=== PATIENT | female | born 1995 | race Caucasian/White ===

== ENCOUNTER → 2016-10-25 12:47 | Outpatient (CLI) | payer MEDICAID ==
[2013-11-26 08:40] VITALS: BMI 36.2
[~2016-10-25 12:47] MED LIST: FERROUS SULFAT325 MG PO; FOLIC ACID1 MG PO; IBUPROFEN600 MG PO; PERCOCET 5-3251 TAB PO; PRENATAL COMPLE1 TAB PO
== END | disposition home or self-care (01) ==
LOC: D.LDO 12:47
DX: Z34.83 Encounter for supervision of other normal pregnancy, third trimester (principal); Z3A.37 37 weeks gestation of pregnancy; R03.0 Elevated blood-pressure reading, without diagnosis of hypertension

== ENCOUNTER 2016-11-04 04:53 | Inpatient (IN) | payer MEDICAID ==
[~2016-11-04] VITALS: Ht 165.1 cm; Wt 92.7 kg
[2016-11-04 05:24] VITALS: BP 130/58; Ht 165.1 cm; Wt 92.7 kg
[2016-11-04 06:06] LABS: HEMATOCRIT 33.9 % (36.0-48.0); HEMOGLOBIN 11.1 g/dL (12-16); MCH 28.8 pg (26.0-34.0); MCHC 32.7 g/dL (31.0-37.0); MCV 88.1 fL (80.0-100.0); MEAN PLATELET VOLUME 11.8 fL (7.4-10.4); RBC 3.85 10x6/uL (4.00-5.40); RDW 14.6 % (11.5-14.5); WBC 9.2 10x3/uL (4.8-10.8)
[2016-11-04 06:08] LABS: APPEARANCE CLEAR (CLEAR); BILIRUBIN NEGATIVE (NEGATIVE); COLOR YELLOW (YELLOW); GLUCOSE NEGATIVE (NEGATIVE); KETONE NEGATIVE (NEGATIVE); LEUKOCYTE ESTERASE NEGATIVE (NEGATIVE); NITRITE NEGATIVE (NEGATIVE); PROTEIN NEGATIVE (NEGATIVE); UROBILINOGEN NORMAL (NORMAL)
[2016-11-04 06:17] LABS: UDS - AMPHET NEGATIVE QUAL (NEGATIVE); UDS - BARB NEGATIVE QUAL (NEGATIVE); UDS - BENZO NEGATIVE QUAL (NEGATIVE); UDS - COCAINE NEGATIVE QUAL (NEGATIVE); UDS - METH NEGATIVE QUAL (NEGATIVE); UDS - OPIATE NEGATIVE QUAL (NEGATIVE); UDS - PCP NEGATIVE QUAL (NEGATIVE); UDS - THC NEGATIVE QUAL (NEGATIVE)
--- NOTE | 2016-11-04 19:15 | NUR ---
REPORT REC'D FROM Gail HALE RN. RN RESUMING CARE OF THIS G2 NOW P2 FOLLOWING NVD AT 1620 OF VIABLE FEMALE . PT REC'D SITTING IN HIGH FOWLERS POSITION VISITING AND LAUGHING WITH VISITORS AT BEDSIDE. DENIES NEEDS AT THIS TIME. CL AND PHONE WITHIN REACH. BED IN LOW POSITION WITH UPPER SIDE RAILS RAISED X2. WILL CONT TO MONITOR AND ASSIST PRN.
[2016-11-04 19:40] VITALS: BP 128/78
--- NOTE | 2016-11-04 19:40 | NUR ---
SHIFT ASSESSMENT COMPLETED. PAIN 2/10, PERINUM BURNING AND STINGING AND INTERMITTENT ABD CRAMPING. EPIFAOM, DERMAPLAST, AND TUX GIVEN WITH VERBAL INSTURCTION ON USE, VERBALIZED UNDERSTANDING STATING THAT SHE REMEMBERS HOW TO USE ITEMS FROM PREVIOUS NVD. VSS. FUNDUS FIRM, U2 WITH MODERATE AMT RUBRA LOCHIA PRESENT, NO CLOTS. STATES THAT SHE HAS ONLY VOIDED X1 BUT "I WENT A LOT." INSTRUCTED TO NOTIFY RN OF ANY DIFFICULTY WITH VOIDING. STATES THAT SHE HAS ALSO PASSED FLATUS, BOWEL SOUNDS ACTIVE X4 QUADS. PT REQUESTS TO SHOWER, STATES THAT S/O WILL BE IN ROOM THE WHOLE TIME. PROVIDED WITH CONDITIONER AND INSTRUCTED ON USE CL IN BATHROOM TO GET ASSIST, VERBALIZED UNDERSTANDING. S/O BACK TO ROOM WITH INFANT, VISITOR CURRENTLY HOLDING WHILE PT PREPARES TO SHOWER. PT REPORTS THAT SHE ITCHING AND REQUESTS BENADRYL LATER AFTER BABY GOES BACK TO NBN, STATES THAT SHE WANTS TIME TO [place] WITH INFANT AND BENADRYL WILL MAKE HER DROWSY. EXPLAINED THAT RN WOULD OBTAIN ORDER FROM MD FOR MEDS FOR ITCHING. VERBALIZED UNDERSTANDING. BED IN LOW POSITION WITH UPPER SIDE RAILS RAISED X2. CL AND PHONE WITHIN REACH. WILL CONT TO MONITOR AND ASSIST PRN.
--- NOTE | 2016-11-04 19:58 | NUR ---
PT UP IN SHOWER. REMAINS IN ROOM WITH VISITOR HOLDING . PT DENIES NEEDS. EXTRA DISPOSABLE PANTIES PROVIDED TO PT.
--- NOTE | 2016-11-04 20:14 | NUR ---
DR. MORTON NOTIFIED OF PT C/O ITCHING AND REQUEST FOR BENADRYL. ORDERS REC'D.
--- NOTE | 2016-11-04 20:21 | NUR ---
PT OUT OF SHOWER. DR. MCGARRY AT BEDSIDE DISCUSSING PLAN FOR AND ASSESSMENT. S/O AND VISITORS REMAIN AT BEDSIDE. BED IN LOW POSITION WITH UPPER SIDE RAILS RAISED X2. CL AND PHONE WITHIN REACH. WILL CONT TO MONITOR AND ASSIST PRN.
--- NOTE | 2016-11-04 21:24 | NUR ---
PT CALLS VIA CL. REQUESTS NEW NICOTINE PATCH. STATES THAT HER OTHER ONE CAME OFF IN THE BED AFTER HER SHOWER. OLD PATCH DISPOSED OF PER PROTOCOL. NEW PATCH APPLIED TO LEFT UPPER ARM. SIDE EFFECTS DISCUSSED WITH PT, VERBALIZED UNDERSTANDING. EMPHASIS PLACED ON BEING SURE TO REMOVE PATCH PRIOR TO SMOKING OR APPLYING NEW PATCH, VERBALIZED UNDERSTANDING. S/O REMAINS AT BEDSIDE AND SUPPORTIVE OF PT. PT HOLDING INFANT AT THIS TIME. BED IN LOW POSITION WITH UPPER SIDE RAILS RAISED X2. CL AND PHONE WITHIN REACH. WILL CONT TO MONITOR AND ASSIST PRN.
--- NOTE | 2016-11-04 22:23 | NUR ---
ROUNDS MADE. PT REQUEST THAT RN TAKE TO NBN AND BENADRYL FOR ITCHING. INFANT TAKEN TO NBN PER REQUEST AND BENADRYL GIVEN. EDUCATED ON IMPORTANCE OF DRINKING EXTRA FLUIDS WHEN TAKING BENADRYL IF PLANNING TO BREAST FEED D/T MED HAVING POTENTIAL TO DRY MILK SUPPLY UP, VERBALIZED UNDERSTANDING. APPLE JUICE GIVEN PER REQUEST. PT STATES THAT SHE IS GOING TO BED TO REST AND WILL CALL NBN WHEN READY FOR INFANT TO COME BACK TO ROOM. S/O REMAINS AT BEDSIDE AND SUPPORTIVE OF PT. BED IN LOW POSITION WITH UPPER SIDE RAILS RAISED X2. CL AND PHONE WITHIN REACH. WILL CONT TO MONITOR AND ASSIST PRN.
--- NOTE | 2016-11-04 23:09 | NUR ---
PAIN 7/10 TO PERINUM. PT REPORTS THAT SHE JUST VOIDED AND PERINUM IS STINGING AND BURNING. STATES THAT SHE HAS USED EPIFAOM AND TUX PADS WITH NO RELIEF. DENIES DIFFICULTY VOIDING AT THIS TIME. ICE PACK ALSO OFFERED AND DECLINED. DENIES ADDITIONAL NEEDS AT THIS TIME. BED IN LOW POSITION WITH UPPER SIDE RAILS RAISED X2. CL AND PHONE WITHIN REACH. S/O RESTING ON COUCH AT BEDSIDE. DENIES NEEDS AT THIS TIME. WILL CONT TO MONITOR AND ASSIST PRN.
--- NOTE | 2016-11-04 23:54 | NUR ---
PAIN REASSESSMENT COMPLETED. PT PLAYING ON CELL PHONE WHEN RN ENTERED ROOM. PAIN 2/, DENIES NEED FOR ADDITIONAL INTERVENTION. S/O REMAINS AT BEDSIDE. DENIES NEEDS. BED IN LOW POSITION WITH UPPER SIDE RAILS RAISED X2. CL AND PHONE WITHIN REACH. WILL CONT TO MONITOR AND ASSIST PRN.
--- NOTE | 2016-11-05 01:57 | NUR ---
ROUNDS MADE. PT RESTING WITH EYES CLOSED. RESPIRATIONS REGULAR AND UNLABORED WITH NO S/S OF DISTRESS NOTED. S/O RESTING ON COUCH. BED IN LOW POSITION WITH UPPER SIDE RAILS RAISED X2 CL AND PHONE WITHIN REACH. WILL CONT TO MONITOR AND ASSIST PRN.
--- NOTE | 2016-11-05 02:31 | NUR ---
PT CALLS VIA CL, C/O ABD GISSEL, 08/07. MOTRIN GIVEN PER REQUEST. APPLE JUICE GIVEN. DENIES ADDITIONAL NEEDS. S/O REMAINS AT BEDSIDE RESTING ON COUCH. PT DENIES ADDITIONAL NEEDS. BED IN LOW POSITION WITH UPPER SIDE RAILS RAISED X2. CL AND PHONE WITHIN REACH. WILL CONT TO MONITOR AND ASSIST PRN.
--- NOTE | 2016-11-05 03:12 | NUR ---
PAIN REASSESSMENT COMPLETED. PT RESTING WITH EYES CLOSED LAYING ON RIGHT SIDE. RESPIRATIONS REGULAR AND UNLABORED. NO S/S OF DISTRESS NOTED. S/O REMAINS ON COUCH AT BEDSIDE RESTING. BED IN LOW POSITION WITH UPPER SIDE RAILS RAISED X2. CL AND PHONE WITHIN REACH. WILL CONT TO MONITOR AND ASSIST PRN.
--- NOTE | 2016-11-05 04:13 | NUR ---
ROUNDS MADE. PT LAYING ON ABD RESTING WITH EYES CLOSED. RESPIRATIONS REGULAR AND UNLABORED. NO S/S OF DISTRESS NOTED. S/O REMAINS AT BEDSIDE RESTING ON COUCH. BED IN LOW POSITION WITH UPPER SIDE RAILS RAISED X2. CL AND PHONE WITHIN REACH. WILL CONT TO MONITOR AND ASSIST PRN.
[2016-11-05 05:45] LABS: BASOPHILS 0 % (0-2); EOSINOPHILS 0.9 % (0-7); IMMATURE GRANULOCYTES 0.1 % (0-5); LYMPHOCYTES 19.6 % (15-50); MCH 29.5 pg (26.0-34.0); MCHC 33.3 g/dL (31.0-37.0); MCV 88.5 fL (80.0-100.0); MEAN PLATELET VOLUME 11.3 fL (7.4-10.4); MONOCYTES 9.4 % (2-11); PLATELET COUNT 182 10x3/uL (130-400); RBC 3.73 10x6/uL (4.00-5.40); RDW 14.7 % (11.5-14.5); WBC 7.6 10x3/uL (4.8-10.8)
--- NOTE | 2016-11-05 05:49 | NUR ---
RN CALLED TO PT BS. PT C/O PAIN RATES 10/07, REQUESTS MEDICATION. 1 TAB NORCO 5 PROVIDED AT THIS TIME. PT ALSO REQUESTS JELLO AND PUDDING, PROVIDED. PT DENIES ANY FURTHER NEEDS. BED IN LOW POSITION, SIDE RAILS UP TIMES 2, CALL LIGHT AND PHONE IN REACH. SO REMAINS AT PT BS FOR SUPPORT AND ASSISTANCE. WILL CONT TO MONITOR PT STATUS.
[2016-11-05 06:13] LABS: RAPID PLASMA REAGIN Non Reactive (Non Reactive)
--- NOTE | 2016-11-05 06:31 | NUR ---
PAIN REASSESSMENT COMPLETED. PT RESTING WITH EYES CLOSED LAYING ON LEFT SIDE. RESPIRATIONS REGULAR AND UNLABORED. NO S/S OF DISTRESS NOTED. S/O REMAINS RESTING ON COUCH. BED IN LOW POSITION WITH UPPER SIDE RAILS RAISED X2. CL AND PHONE WITHIN REACH. WILL CONT TO MONITOR AND ASSIST PRN.
[2016-11-05 08:00] VITALS: BP 135/77
--- NOTE | 2016-11-05 08:00 | NUR ---
LIGHTS OUT IN ROOM- PT QUICK TO RESPOND WHEN NAME CALLED. SITS UP IN BED. ASSESSMENT DONE. VERBAL RESPONSES APPRO TO QUESTIONS. STATES THAT HAS ALREADY EATEN BREAKFAST. STATES THAT SHE WILL TAKE BABY AT 0900. DR MORTON TO ROOM TO SEE PT. DR MORTON GIVE PT OPTION OF ROOMING IN AND EXPLAINS ITS PURPOSE. PT STATES THAT SHE WILL NOT SMOKE AND IS OK WITH PATCHES AND WANTS TO REMAIN INPATIENT. CALL LIGHT IN REACH. DENIES NEEDS AT THIS TIME.
--- NOTE | 2016-11-05 09:19 | NUR ---
RINGS CALL LIGHT. REQUESTING IBUPROFEN. CO CRAMPING- RATES PAIN A 6 ON SCALE OF 0-10. MED GIVEN.
--- NOTE | 2016-11-05 09:23 | NUR ---
SALINE LOCK REMOVED WITH CATH INTACT- BANDAIDE APPLIED.
[2016-11-05 13:00] VITALS: BP 142/77
--- NOTE | 2016-11-05 13:00 | NUR ---
SITTING UP IN BED. IN ARM. APPLE JUICE GIVEN PER REQUEST. PT RATES PAIN DOWN TO A 3 ON SCALE OF 0-10. STATES "BOTTOM JUST HURTS WHEN I COUGH OR WALK"
[2016-11-05 16:15] VITALS: BP 140/70
--- NOTE | 2016-11-05 16:15 | NUR ---
PT REQUESTING SODA- DENIES OTHER NEEDS. VS DONE. IN ROOM.
[2016-11-05 18:58] VITALS: BP 148/79
--- NOTE | 2016-11-05 18:58 | NUR ---
RCVD PT FROM Vaishali OJEDA RN. PT AAOX3 WITH UP IN ARMS BONDING. S.O. RESTING ON BEDSIDE COUCH. PT DENIES PAIN AT THIS TIME. HR-RRR, PPP, BREATH SOUNDS CLEAR & UNLABORED X2. BOWEL SOUNDS ACTIVE X4. VSS. PT REPORTS SMALL LOCHIA RUBRA AND NO CLOTS WHEN VOIDING AND PT IS VOIDING WITHOUT DIFFICULTY. PT DESIRES TO TAKE MOTRIN AND NORCO TOGETHER. ADV PT OF AVAILABLE TIME BEING 2300. PT VERBALIZED UNDERSTANDING AND DENIES FURTHER NEEDS. MEAL TRAY REMOVED FROM ROOM. BED LOW, WHEELS LOCKED, CL IN REACH, SIDE RAILS UP X2.
--- NOTE | 2016-11-05 19:42 | NUR ---
PT RINGS CL. RN TO BS. PT ASKING FOR NICOTINE PATCH. ADV PT THAT IT IS SCHEDULED FOR 9 PM. PT VERBALIZED UNDERSTANDING AND DENIES FURTHER NEEDS.
--- NOTE | 2016-11-05 20:53 | NUR ---
NICOTINE PATCH GIVEN PER ORDERS. SEE EMAR. PT REPORTED OLD ONE 'FALLING OFF.' OLD PATCH COLLECTED AND DISPOSED OF PER PROTOCOL. PT REQUESTS M.O.M. STATING THAT SHE DIDN'T GET ANY LAST NIGHT. ADV PT WILL GET IT ORDERED FOR PER. PT ALSO REQUESTS THAT NORCO BE GIVEN @ 2129. ADV PT WILL RETURN WITH SAME. PT DENIES FURTHER NEEDS AT THIS TIME. FAMILY REMAINS IN ROOM VISITING AND IN OPEN CRIB AT BEDSIDE.
--- NOTE | 2016-11-05 21:38 | NUR ---
UPON ENTERING ROOM FAMILY REPORTS THAT PT IS GETTING READY FOR A SHOWER. THIS RN KNOCKED ON BATHROOM DOOR AND INQUIRED IF PT WANTS NORCO BEFORE SHOWERING. PT CONFIRMED WANT AND OUT OF BATHROOM AT THIS TIME. PT RATES PAIN 4/10 AND DESCRIBES IT CRAMPING IN ABD. NORCO 5/325MG X1 TAB GIVEN FOR PAIN. PT DENIES FURTHER NEEDS AT THIS TIME. FAMILY REMAINS IN ROOM AND RESTING IN OPEN CRIB AT BEDSIDE.
--- NOTE | 2016-11-05 22:23 | NUR ---
M.O.M. GIVEN PER ORDERS. SEE EMAR. PT STATES "I TOOK THAT NICOTINE PATCH OFF. I GOT REAL HOT." ADV PT THAT I WAS UNABLE TO GET HER ANOTHER ONE TONIGHT. PT VERBALIZED UNDERSTANDING AND IS AGREEABLE. PATCH DISPOSED OF PER PROTOCOL. PT RATES PAIN 2/10 CURRENTLY AND TOLERABLE. PT DENIES FURTHER NEEDS. WILL CONT POC.
--- NOTE | 2016-11-06 00:22 | NUR ---
PT RINGS CL. RN TO BS. PT REQUESTS & RECEIVES MOTRIN 600MG X1 TAB FOR PAIN RATED 5/10 DESCRIBED CRAMPING/GAS PAINS. Vaishali RING LPN IN ROOM FEEDING INFANT AND S.O. RESTING ON BEDSIDE COUCH. PT DENIES FURTHER NEEDS.
--- NOTE | 2016-11-06 01:07 | NUR ---
PAIN REASSESSMENT COMPLETE. PT RATES PAIN 2/10 AND TOLERABLE. PT DENIES FURTHER NEEDS AT THIS TIME.
--- NOTE | 2016-11-06 02:01 | NUR ---
ROUNDS MADE. PT RESTING ON BACK, EYES CLOSED & RESP EVEN & UNLABORED. PT LEFT UNDISTURBED.
--- NOTE | 2016-11-06 04:01 | NUR ---
ROUNDS MADE. PT LYING ON BACK, HOB 20 DEGREES. PT RESTING WITH EYES CLOSED, RESP EVEN & UNLABORED. S.O. SLEEPING ON BEDSIDE COUCH. PT LEFT UNDISTURBED AT THIS TIME.
--- NOTE | 2016-11-06 06:33 | NUR ---
PT REQUESTS & RECEIVES MOTRIN 600MG X1 TAB AND NORCO 5/325MG X1 TAB FOR PAIN RATED 5/10 IN ABD. PT ALSO RECEIVES APPLE JUICE UPON REQUEST. PT DENIES FURTHER NEEDS.
--- NOTE | 2016-11-06 07:15 | NUR ---
DR. MORTON AT [facility], VERBAL ORDER RECEIVED TO DISCHARGE PT HOME WITH INFANT, OR TO ROOM IN, IF STAYS.
[2016-11-06 08:00] VITALS: BP 121/82
--- NOTE | 2016-11-06 09:50 | NUR ---
PT CALLS OUT GRINDER MACHINE KNIFE SETTER LIGHT AND REQUESTS SOME MORE EPIFOAM, TUCKS, AND PERIPADS, STATES "HE ALREADY TOOK THEM TO THE CAR". PROVIDED, SEE EMAR FOR ALL MEDS ADM BY THIS RN.
--- NOTE | 2016-11-06 09:55 | NUR ---
PT ALSO REQUESTING COCA COLA TO DRINK, STATES "I DON'T LIKE THE GENERIC ONES". ORDER PLACED TO DIETARY. PT IS CURRENTLY PACKING UP PERSONAL BELONGINGS FOR DISCHARGE. PT DENIES OTHER NEEDS AT THIS TIME.
[2016-11-06] MEDS ORDERED: IBUPROFEN600 MG PO (11:58)
[2016-11-06] MEDS ORDERED: HYDROCODON-ACE1 EAC7 PO (11:58)
--- NOTE | 2016-11-06 12:10 | NUR ---
DISCHARGE INSTRUCTIONS EXPLAINED TO PT, WITH COPY OF D/C INSTRUCTIONS GIVEN TO PT. PRESCRIPTIONS FOR NORCO AND IBUPROFEN GIVEN TO PT, ALONG WITH APPT CARD, AND PP INSTRUCTION SHEET. PT DENIES QUESTIONS. AWAITING BABY'S DISCHARGE.
--- NOTE | 2016-11-06 12:30 | NUR ---
PT TO PRIVATE VEHICLE BY WHEELCHAIR, WITH VOLUNTEER, WITH INFANT IN CARSEAT. PT'S SIG OTHER IS DRIVING.
--- NOTE | 2016-11-06 12:30 | NUR ---
FOB DEMONSTRATES SKILL IN PLACING IN CAR SEAT WITH PROPER STRAP APPLICATION ALLOWING 2 FINGERBREADTHS SPACE BETWEEN STRAP AND INFANT AND NOTING NO SIGNS OF RESP DISTRESS IN WHILE SECURED IN CAR SEAT. INFANT DISCHARGED IN STABLE CONDITION TO CARE OF PARENTS
== END 2016-11-06 12:30 | disposition home or self-care (01) | DRG 775 ==
LOC: D.LD 04:53
PROVIDERS: ADMIT Obstetrics & Gynecology
PROC: 10D07Z6 Extraction of Products of Conception, Vacuum, Via Natural or Artificial Opening (ICD-10-PCS; principal; 2016-11-04)
PROC: 0UQMXZZ Repair Vulva, External Approach (ICD-10-PCS; 2016-11-04)
DX: O99.214 Obesity complicating childbirth (principal); Z3A.39 39 weeks gestation of pregnancy; Z37.0 Single live birth; O99.824 Streptococcus B carrier state complicating childbirth; O99.324 Drug use complicating childbirth; F12.90 Cannabis use, unspecified, uncomplicated; O99.334 Smoking (tobacco) complicating childbirth; O71.82 Other specified trauma to perineum and vulva

== ENCOUNTER 2018-01-25 07:37 | Emergency (ER) | payer MEDICAID ==
[~2018-01-25] VITALS: Ht 165.1 cm; Wt 95.5 kg
[~2018-01-25 07:37] MED LIST changes: +HYDROCODON-ACE1 EAC7 PO
[2018-01-25 07:42] VITALS: Ht 165.1 cm; Wt 95.5 kg
[2018-01-25 08:20] LABS: BASOPHILS 0.1 % (0-2); EOSINOPHILS 1.5 % (0-7); HEMATOCRIT 43.4 % (36.0-48.0); HEMOGLOBIN 13.4 g/dL (12-16); IMMATURE GRANULOCYTES 0.2 % (0-5); LYMPHOCYTES 18.4 % (15-50); MCH 30.5 pg (26.0-34.0); MCHC 30.9 g/dL (31.0-37.0); MCV 98.9 fL (80.0-100.0); MEAN PLATELET VOLUME 11.9 fL (7.4-10.4); MONOCYTES 8.5 % (2-11); NEUTROPHILS 71.3 % (40-80); RBC 4.39 10x6/uL (4.00-5.40); RDW 14.6 % (11.5-14.5); WBC 9.2 10x3/uL (4.8-10.8)
[2018-01-25 08:31] LABS: PLATELET COUNT 255 10x3/uL (130-400)
[2018-01-25 08:33] LABS: ALBUMIN 3.6 g/dL (3.4-5.0); ALKALINE PHOSPHATASE 109 U/L (46-116); ALT (SGPT) 23 U/L (10-68); BILIRUBIN - TOTAL 0.19 mg/dL (0.2-1.3); CALC OSMOLALITY 277 mosm/kg (275-300); CALCIUM 8.8 mg/dL (8.5-10.1); CARBON DIOXIDE 22.5 mmol/L (21.0-32.0); CHLORIDE - SERUM 105 mmol/L (98-107); CREATININE - SERUM 0.6 mg/dL (0.6-1.3); GLUCOSE 101 mg/dL (74-106); POTASSIUM - SERUM 3.8 mmol/L (3.5-5.1); PROTEIN - SERUM 7.6 g/dL (6.4-8.2); SODIUM 139 mmol/L (136-145); UREA NITROGEN 13 mg/dL (7-18); eGFR NON AFRICAN AMERICAN > 90 mL/min (90-120)
[2018-01-25 08:36] LABS: APPEARANCE HAZY (CLEAR); BILIRUBIN NEGATIVE (NEGATIVE); COLOR YELLOW (YELLOW); GLUCOSE NEGATIVE (NEGATIVE); KETONE NEGATIVE (NEGATIVE); NITRITE NEGATIVE (NEGATIVE); PROTEIN NEGATIVE (NEGATIVE); SPECIFIC GRAVITY 1.015 (1.005-1.020); UROBILINOGEN NORMAL (NORMAL); WHITE CELLS - URINE 0-5 /hpf (0-5)
[2018-01-25 08:37] LABS: BACTERIA FEW /hpf (NONE SEEN); EPITHELIAL CELLS 0-5 /hpf (0-5); RED CELLS - URINE OCC /hpf (0-5)
[2018-01-25 08:55] LABS: HCG - QUANTITATIVE (MATERNAL) 1165 mIU/mL
[2018-01-25 09:46] VITALS: BP 126/82
== END 2018-01-25 09:47 | disposition home or self-care (01) ==
LOC: D.ER 07:37
PROVIDERS: Emergency Medicine
DX: O26.899 Other specified pregnancy related conditions, unspecified trimester (principal); Z3A.00 Weeks of gestation of pregnancy not specified; R10.2 Pelvic and perineal pain; F17.200 Nicotine dependence, unspecified, uncomplicated

== ENCOUNTER 2019-07-01 16:07 | Outpatient (CLI) | payer MEDICAID ==
[2018-01-25 07:42] VITALS: BMI 35.0
[2019-07-01 16:35] LABS: BASOPHILS 0 % (0-2); EOSINOPHILS 0.5 % (0-7); HEMATOCRIT 37.1 % (36.0-48.0); HEMOGLOBIN 11.7 g/dL (12-16); IMMATURE GRANULOCYTES 0.3 % (0-5); LYMPHOCYTES 15.4 % (15-50); MCH 28.1 pg (26.0-34.0); MCHC 31.5 g/dL (31.0-37.0); MCV 89.2 fL (80.0-100.0); MEAN PLATELET VOLUME 11.4 fL (7.4-10.4); MONOCYTES 9.7 % (2-11); NEUTROPHILS 74.1 % (40-80); PLATELET COUNT 218 10x3/uL (130-400); RBC 4.16 10x6/uL (4.00-5.40); RDW 15.2 % (11.5-14.5); WBC 9.2 10x3/uL (4.8-10.8)
[2019-07-01 17:08] LABS: CALC OSMOLALITY 275 mosm/kg (275-300); CALCIUM 8.3 mg/dL (8.5-10.1); CARBON DIOXIDE 19.7 mmol/L (21.0-32.0); CHLORIDE - SERUM 106 mmol/L (98-107); CREATININE - SERUM 0.5 mg/dL (0.6-1.3); GLUCOSE 76 mg/dL (74-106); POTASSIUM - SERUM 3.8 mmol/L (3.5-5.1); SODIUM 139 mmol/L (136-145); UREA NITROGEN 9 mg/dL (7-18); eGFR NON AFRICAN AMERICAN > 90 mL/min (90-120)
[2019-07-01 17:14] LABS: ALBUMIN 2.7 g/dL (3.4-5.0); ALKALINE PHOSPHATASE 162 U/L (30-120); ALT (SGPT) 14 U/L (10-68); BILIRUBIN - DIRECT 0.13 mg/dL (0.00-0.30); BILIRUBIN - INDIRECT 0.16 mg/dL (0.00-1.00); BILIRUBIN - TOTAL 0.29 mg/dL (0.2-1.3); PROTEIN - SERUM 6.1 g/dL (6.4-8.2); URIC ACID 3.5 mg/dL (2.6-7.2)
[2019-07-01 18:50] LABS: BILIRUBIN NEGATIVE (NEGATIVE); GLUCOSE NEGATIVE (NEGATIVE); KETONE NEGATIVE (NEGATIVE); NITRITE NEGATIVE (NEGATIVE); UROBILINOGEN NORMAL (NORMAL)
[2019-07-01 18:57] LABS: BACTERIA MODERATE /hpf (NEGATIVE); EPITHELIAL CELLS 0-5 /hpf (0-5); RED CELLS - URINE 0-5 /hpf (0-5)
[2019-07-01 18:58] LABS: CREATININE - URINE 134.8 mg/dL (30-125); PRO/CRE RATIO URINE 0.2 mg/g; PROTEIN - URINE 20.9 mg/dL (0.0-11.9)
== END 2019-07-01 19:32 | disposition hospice, home (50) ==
LOC: D.LDO 16:07
PROVIDERS: Obstetrics & Gynecology; ATTEND Student in an Organized Health Care Education/Training Program
DX: O26.899 Other specified pregnancy related conditions, unspecified trimester (principal); Z3A.00 Weeks of gestation of pregnancy not specified; R03.0 Elevated blood-pressure reading, without diagnosis of hypertension

== ENCOUNTER 2019-07-04 21:05 | Inpatient (IN) | payer MEDICAID ==
[~2019-07-04] VITALS: Ht 162.6 cm; Wt 105.9 kg
[2019-07-04] MEDS ORDERED: CELEXA10 MG PO (21:20)
[2019-07-04 21:59] LABS: HEMATOCRIT 34.4 % (36.0-48.0); MCH 28.6 pg (26.0-34.0); MCV 89.4 fL (80.0-100.0); MEAN PLATELET VOLUME 11.2 fL (7.4-10.4); RBC 3.85 10x6/uL (4.00-5.40); RDW 15.3 % (11.5-14.5); WBC 10.4 10x3/uL (4.8-10.8)
[2019-07-04 22:09] LABS: UDS - AMPHET NEGATIVE QUAL (NEGATIVE); UDS - BARB NEGATIVE QUAL (NEGATIVE); UDS - BENZO NEGATIVE QUAL (NEGATIVE); UDS - COCAINE NEGATIVE QUAL (NEGATIVE); UDS - OPIATE NEGATIVE QUAL (NEGATIVE); UDS - PCP NEGATIVE QUAL (NEGATIVE); UDS - THC NEGATIVE QUAL (NEGATIVE)
[2019-07-04 22:21] VITALS: BP 129/72; Ht 162.6 cm; Wt 105.9 kg
--- NOTE | 2019-07-05 12:43 | NUR ---
CALL VIA CALL LIGHT REQUEST NICOTINE PATCH AND BLANKET. REQUEST 7 MG NICOTINE INSTEAD OF 14 MG, STATES THAT SHE HAD A 14 MG PATCH LAST TIME AND IT MADE HER DIZZY. WILL REPORT TO DR. WHITMAN. BLANKET PROVIDED. LIGHTS OFF PER PT REQUEST. REPORTS THAT SHE JUST VOIDED, FUNDUS FIRM, MIDLINE AND U1, SCANT RUBRA LOCHIA, NO CLOTS NOTED. BED IN LOW POSITION WITH SRUP X2. CALL LIGHT AND PHONE WITHIN REACH. WILL CONTINUE TO MONITOR.
--- NOTE | 2019-07-05 13:16 | NUR ---
RN TO BEDSIDE FOR NICOTINE PATCH PLACEMENT. RESTING ON L SIDE WITH EYES CLOSED, RESP REGULAR AND UNLABORED, NO S/S DISTRESS NOTED. NOT DISTURBED TO ALLOW FOR REST. WILL CONTINUE TO MONITOR.
--- NOTE | 2019-07-05 14:25 | NUR ---
C/O BACKACHE, PERINEAL SORENESS, AND ABD CRAMPING 4/10, MOTRIN GIVEN PER ORDER AND PT REQUEST. ICE WATER AND POPICLE PROVIDED. DENIES ADDITIONAL NEEDS. NICOTINE PATCH PLACED TO R SHOULDER, PT INSTRUCTED ON NICOTINE PATCH REMOVAL PRIOR TO SMOKING OR PLACING ANOTHER PATCH, VERBALIZES UNDERSTANDING AND DENIES QUESTIONS. BONDING WITH AT THIS TIME. SIGNIFICANT OTHER AT BEDSIDE, SUPPORTIVE AND ATTENTIVE TO PT AND INFANT NEEDS. BED IN LOW POSITION WITH SRUP X2. CALL LIGHT AND PHONE WITHIN REACH.
--- NOTE | 2019-07-05 15:03 | NUR ---
PAIN REASSESSMENT COMPLETED, DENIES PAIN. SITTING IN HIGH FOWLERS POSITION BONDING WITH . DENIES NEEDS. BED IN LOW POSITION WITH SRUP X2. CALL LIGHT AND PHONE WITHIN REACH. WILL CONTINUE TO MONITOR.
--- NOTE | 2019-07-05 17:00 | NUR ---
RECEIVED PT FROM LABOR AND DELIVERY VIA AMBULATORY TO ROOM 1223. PT ORIENTED TO ROOM, BED AND CALL LIGHT. PT TO BR TO SHOWER AT THIS TIME. LINENS AND TOILETRIES PROVIDED. SO IN ROOM WITH PT.
--- NOTE | 2019-07-05 17:46 | NUR ---
PT NETWORK ANNOUNCER LIGHT. REQUESTS AND RECEIVES SHIRT FOR . PT STATES SVEN SHOWER WELL.
--- NOTE | 2019-07-05 18:29 | NUR ---
PT CALLS ON LIGHT. ASKS FOR NUMBER TO NURSERY. EXT GIVEN TO PT. PT CALLS OUT ON LIGHT AGAIN AND STATES NUMBER NOT WORKING. THIS NURSE TO NURSERY. NURSERY STAFF ON PHONE WITH MUSEUM TOUR GUIDE AT THIS TIME. NOTIFIED PT REQUESTING BOTTLE FOR .
[2019-07-05 19:45] VITALS: BP 90/72
--- NOTE | 2019-07-05 19:45 | NUR ---
ASSESSMENT PER FLOW SHEET, VS OBTAINED, SALINE LOCK IN RIGHT HAND INTACT WITH NO REDNESS OR EDEMA, RETAPED SALINE LOCK, FF, ML, U/1, LITE BLEEDING WITH NO CLOTS NOTED, PT DENIES FLATUS, NO BM, AND VOIDING WITH NO DIFFICULTY, PT REQUESTS MOM, INFORMED PT THAT I WILL NOTIFY THE DOCTOR EXECUTIVE OFFICER SPECIAL [employer]ARF[employer] TEAM, PT RATES CRAMPING 09/07, INFORMED PT THAT I WILL ADM MOTRIN AT 8:45PM WHEN DUE, PT VERBALIZES UNDERSTANDING, PT REQUESTED PADS AND PANTIES, PT SHOWN THAT THERE ARE 2 PACKAGES OF PADS AND 4 PAIRS OF CAROL PANTIES IN BEDSIDE TABLE, PT REQUESTED AND SERVED SANDWICH TRAY AND LEMON APACHE SODA, PT DENIES FURTHER NEEDS, BED IN LOW POSITION, SIDE RAILS X 2, CALL LIGHT IN REACH, FOB HOLDING INFANT
--- NOTE | 2019-07-05 20:17 | NUR ---
PT UX DESIGN LEAD, PT REQUESTED AND SERVED JORDAN DENG, AND JAQUAN CRACKERS, PT DENIES FURTHER NEEDS
--- NOTE | 2019-07-05 20:22 | NUR ---
KG ALVAREZ RN, CHARGE NURSE ON L&D HAS TO NOTIFY DR WHITMAN ABOUT ANOTHER PT, SO SHE WILL ASK DR WHITMAN ABOUT MOM FOR PT
--- NOTE | 2019-07-05 20:36 | NUR ---
PT COMING OUT OF BR, INFORMED PT THAT I WILL ADM MOM SOON I GET AN ORDER FOR IT, ADM ARI PER MD ORDERS, SEE EMAR, PT DENIES FURTHER NEEDS AT THIS TIME, FOB HOLDING INFANT
--- NOTE | 2019-07-05 21:00 | NUR ---
PT INTELLIGENCE OPERATIONS LIGHT, BEDDING PROVIDED TO FOB, DENIES FURTHER NEEDS
--- NOTE | 2019-07-05 21:52 | NUR ---
KG ALVAREZ RN, CHARGE NURSE, REPORTS THAT SHE SPOKE TO DR WHITMAN, RECEIVED ORDERS FOR MILK OF MAG
--- NOTE | 2019-07-05 22:10 | NUR ---
PT UP IN BR AT THIS TIME, INST FOB TO HAVE PT USE CALL LIGHT WHEN BACK TO BED
--- NOTE | 2019-07-05 22:15 | NUR ---
PT STRIP TANK TENDER LIGHT, PT BACK IN BED, ADM MOM PER MD ORDERS, SEE EMAR, PT REQUESTED AND SERVED APPLE JUICE AND ICE CREAM, PT DENIES FURTHER NEEDS, INFANT IN OPEN CRIB CART AND FOB AT BEDSIDE
--- NOTE | 2019-07-05 22:55 | NUR ---
PT PRODUCT PICKER LIGHT, REQUESTED AND PROVIDED EXTRA PILLOW, DENIES FURTHER NEEDS
--- NOTE | 2019-07-05 23:10 | NUR ---
ANNY EAGLE RN FROM [facility] REPORTS THAT PT CALLED NSY TO REQUEST BABY BLANKETS, THIS RN TOOK BLANKETS TO PT, PT DENIES FURTHER NEEDS, DIRTY ONES REMOVED FROM ROOM, FOB AT BEDSIDE
--- NOTE | 2019-07-06 01:06 | NUR ---
PT RESTING WITH EYES CLOSED, RESP QUIET, NO DISTRESS NOTED, LEFT UNDISTURBED AT THIS TIME, IN OPEN CRIB CART AND FOB ASLEEP AT BEDSIDE
--- NOTE | 2019-07-06 01:17 | NUR ---
FOB COMING OUT OF ROOM, THIS RN TO ROOM, BOTTLE AND NIPPLE PROVIDED FOR FEEDING
--- NOTE | 2019-07-06 01:48 | NUR ---
PT FLOOR WORKER LIGHT, PT REQUESTED AND SERVED COLA, DENIES FURTHER NEEDS OR PAIN AT THIS TIME, IN OPEN CRIB CART AND FOB AT BEDSIDE
--- NOTE | 2019-07-06 02:15 | NUR ---
PT RESTING WITH EYES CLOSED, AROUSES TO SOFT VERBAL STIMULATION, TO NSY VIA OPEN CRIB CART PER THIS TIME, FOB ASLEEP AT BEDSIDE
--- NOTE | 2019-07-06 02:47 | NUR ---
PT RESTING WITH EYES CLOSED, AROUSES TO SOFT VERBAL STIMULATION, TO ROOM VIA OPEN CRIB CART PER THIS RN, BANDS CHECKED, PT DENIES NEEDS OR PAIN AT THIS TIME, FOB ASLEEP AT BEDSIDE
--- NOTE | 2019-07-06 03:35 | NUR ---
PT RESTING WITH EYES CLOSED, RESP QUIET, NO DISTRESS NOTED, LEFT UNDISTURBED AT THIS TIME, IN OPEN CRIB CART AND FOB ASLEEP AT BEDSIDE
--- NOTE | 2019-07-06 05:06 | NUR ---
PT DIESEL FITTER MECHANIC LIGHT, PT REQUESTED AND PROVIDED BOTTLE FOR FEEDING, PT C/O CRAMPING WILL ADM ARI
--- NOTE | 2019-07-06 05:10 | NUR ---
ADM ARI PER MD ORDERS, SEE EMAR, PT DENIES FURTHER NEEDS, FOB ASLEEP AT BEDSIDE
--- NOTE | 2019-07-06 05:24 | NUR ---
PT SHEEP SHEARER LIGHT, PT BOTTLE FEEDING INFANT AT THIS TIME, PT REQUESTED AND PROVIDED INK PEN, AND SERVED ORANGE JUICE, PT DENIES FURTHER NEEDS, FOB ASLEEP AT BEDSIDE
[2019-07-06 06:04] LABS: BASOPHILS 0 % (0-2); EOSINOPHILS 1.1 % (0-7); HEMATOCRIT 32.8 % (36.0-48.0); HEMOGLOBIN 10.2 g/dL (12-16); IMMATURE GRANULOCYTES 0.2 % (0-5); LYMPHOCYTES 22.2 % (15-50); MCH 28.2 pg (26.0-34.0); MCHC 31.1 g/dL (31.0-37.0); MCV 90.6 fL (80.0-100.0); MEAN PLATELET VOLUME 11.7 fL (7.4-10.4); MONOCYTES 7.9 % (2-11); NEUTROPHILS 68.6 % (40-80); PLATELET COUNT 175 10x3/uL (130-400); RBC 3.62 10x6/uL (4.00-5.40); RDW 15.4 % (11.5-14.5); WBC 9.2 10x3/uL (4.8-10.8)
[2019-07-06 06:08] LABS: RAPID PLASMA REAGIN Non Reactive (Non Reactive)
[2019-07-06 07:50] VITALS: BP 116/94
--- NOTE | 2019-07-06 07:50 | NUR ---
TO ROOM FOR VS AND ASSESSMENT. SEE FLOWSHEET. NO C/O PAIN; NO NEEDS AT THIS TIME. INFANT IN ROOM. FOB ASLEEP ON SOFA IN ROOM AT BEDSIDE.
--- NOTE | 2019-07-06 09:45 | NUR ---
IV UNCOMFORTABLE, SITE TENDER. IV D/C'D. CATHETER INTACT. 4X4 AND BANDAGE APPLIED. NO BLEEDING NOTED FROM SITE.
--- NOTE | 2019-07-06 10:30 | NUR ---
UP TO SHOWER. FOB AT BEDSIDE. INFANTIN ROOM IN OPEN CRIB.
--- NOTE | 2019-07-06 11:45 | NUR ---
REQUESTS PAIN MED FOR PERINEAL DISCOMFORT.
[2019-07-06] MEDS ORDERED: IBUPROFEN600 MG PO (12:00)
--- NOTE | 2019-07-06 12:15 | NUR ---
DR. WHITMAN HERE TO SEE PT.
--- NOTE | 2019-07-06 15:30 | NUR ---
SITTING UP IN BED, WATCHING TV WITH INFANT IN ARMS. NO C/O PAIN OR NEEDS AT THIS TIME.
--- NOTE | 2019-07-06 18:00 | NUR ---
REVIEWED DISCHARGE INSTRUCTIONS WITH PATIENT. STATES UNDERSTANDING. FOLLOW-UP APPOINTMENT GIVEN.
--- NOTE | 2019-07-06 18:15 | NUR ---
PATIENT DISCHARGED HOME AMBULATORY TO PRIVATE VEHICLE ACCOMPANIED BY FOB AND SECURED IN CAR SEAT.
== END 2019-07-06 18:15 | disposition home or self-care (01) | DRG 807 ==
LOC: D.LD 21:05 → D.WS 07-05 17:00
PROVIDERS: ADMIT Student in an Organized Health Care Education/Training Program; ATTEND Student in an Organized Health Care Education/Training Program
PROC: 10907ZC Drainage of Amniotic Fluid, Therapeutic from Products of Conception, Via Natural or Artificial Opening (ICD-10-PCS; principal; 2019-07-05)
PROC: 10E0XZZ Delivery of Products of Conception, External Approach (ICD-10-PCS; 2019-07-05)
PROC: 3E033VJ Introduction of Other Hormone into Peripheral Vein, Percutaneous Approach (ICD-10-PCS; 2019-07-05)
DX: O13.4 Gestational [pregnancy-induced] hypertension without significant proteinuria, complicating childbirth (principal); Z37.0 Single live birth; Z3A.39 39 weeks gestation of pregnancy; O99.334 Smoking (tobacco) complicating childbirth